=== PATIENT | female | born 1950 | race Caucasian/White ===

== ENCOUNTER → 2016-05-29 | Outpatient (CLI) | payer BC ==
[2016-05-29 10:57] LABS: Partial Thromboplastin Time 23.6 sec (22.0-30.0)
[2016-05-30 07:25] LABS: Cardiolipin Ab IgG <9.0 GPL (<15); Cardiolipin Ab IgM <9.0 MPL (<12.5)
[2016-05-30 10:40] LABS: Protein C (Activity) 154 % (70 - 130)
[2016-06-01 11:25] LABS: Free Protein S Antigen 122 % (50 - 147)
== END | disposition home or self-care (01) ==
LOC: LABWHC1 09:04
PROVIDERS: ATTEND Internal Medicine Critical Care Medicine
DX: D68.69 Other thrombophilia (principal)
CPT/HCPCS: 36415; 81240; 81241; 83090; 85301; 85303; 85306; 85610; 85613; 85730; 86147

== ENCOUNTER → 2016-10-17 | Outpatient (CLI) | payer BC ==
--- NOTE | 2016-10-17 17:58 | CT ---
EXAMINATION TYPE: CT lumbar spine wo con DATE OF EXAM: 10/17/2016 5:39 PM COMPARISON: NONE HISTORY: Bilat flank pain with numbness to upper legs. No known injury CT DLP: 1863.8 mGycm Automated exposure control for dose reduction was used. Unenhanced CT of the lumbar spine was performed. Bone and soft tissue window settings are submitted as well as coronal and sagittal reconstructions. The vertebra have fairly normal alignment. There is narrowing at L5-S1 disc space with vacuum disc an d spur formation. There is no paraspinal mass. There is no compression fracture. I see no spinal sten osis. There is mild endplate spur formation at L5-S1 posteriorly. There is developmentally adequate s ashtyn canal. There is hypertrophic facet arthropathy at L4-5 and L5-S1. The neural foramina appear we ll maintained. Sacroiliac joints are intact. IMPRESSION: There is spondylosis at L5-S1. No fracture. No spinal stenosis. Small posterior disc bulging at L4-5 L5-S1 without encroachment on the neural elements.
== END | disposition home or self-care (01) ==
LOC: RADCTMAIN 17:17
PROVIDERS: ATTEND Psychiatry & Neurology Neurology
DX: M51.27 Other intervertebral disc displacement, lumbosacral region (principal); M47.817 Spondylosis without myelopathy or radiculopathy, lumbosacral region; Z88.5 Allergy status to narcotic agent; Z91.011 Allergy to milk products
CPT/HCPCS: 72131

== ENCOUNTER 2017-03-10 17:20 | Emergency (ER) | payer BC ==
[2017-03-10] MEDS ORDERED: SODIUM CHLORIDE 0.9% 1,000 ML IV STA (17:38)
--- NOTE | 2017-03-10 17:53 | ED ---
Chest Pain HPI - General Chief Complaint: Chest Pain Stated Complaint: SOB Time Seen by Provider: 03/10/17 17:20 Source: patient, EMS, RN notes reviewed Mode of arrival: EMS Limitations: no limitations - History of Present Illness Initial Comments: This is a 66-year-old female history of pulmonary embolus and was on a blood thinner at this time who states she had the onset around 3:30 PM today of right- sided posterior shoulder and chest pain. She states it was dull and achy in nature was 5 out of 10 now 4/10 in severity felt similar to her previous pulmonary and was in. That was 2 years ago. No fevers chills sweats or is reproducibility with movement of her right arm and shoulder and when she pushed on the right side of her chest. No cough or phlegm production fevers chills sweats or other symptoms. She does admit that she was somewhat anxious. MD Complaint: chest pain - Related Data Home Medications Medication Instructions Recorded Confirmed SUMAtriptan SUCCINATE [Imitrex] 100 mg PO BID PRN 05/05/15 03/10/17 Rivaroxaban [Xarelto] 20 mg PO AC-SUPPER 09/23/15 03/10/17 Calcium/Magnesium/Vit D3/K2 1 tab PO AC-SUPPER 03/10/17 03/10/17 Ciclopirox [Penlac] 1 applic TOPICAL HS 03/10/17 03/10/17 Losartan/Hydrochlorothiazide 1 tab PO AC-SUPPER 03/10/17 03/10/17 [Losartan-Hctz 100-25 mg Tab] Meloxicam [Mobic] 15 mg PO DAILY PRN 03/10/17 03/10/17 Rizatriptan Benzoate [Maxalt] 10 mg PO BID PRN 03/10/17 03/10/17 rOPINIRole HCL [Requip] 1 mg PO BID 03/10/17 03/10/17 Previous Rx's Medication Instructions Recorded Hydrocodone/Acetaminophen [[place] 1 each PO Q6HR PRN #12 tab 03/10/17 5-325] predniSONE 20 mg PO BID #10 tab 03/10/17 Allergies Allergy/AdvReac Type Severity Reaction Status Date / Time Milk Containing Products Allergy Abdominal Verified 03/10/17 17:55 [Dairy] Pain wheat Allergy Abdominal Verified 01/07/18 17:55 Pain Review of Systems ROS Statement: Those systems with pertinent positive or pertinent negative responses have been documented in the HPI. ROS Other: All systems not noted in ROS Statement are negative. EKG Findings - EKG Results: EKG: interpreted by JEREMY, sinus rhythm (Sinus rhythm of 86. Interval 202 QRS of 92 QT since QTC of 360/440 evidence a left axis deviation and old inferior changes. Compared with an EKG dated 05/05/15 the configuration appears consistent.) Past Medical History Past Medical History: Cancer, Chest Pain / Angina, Deep Vein Thrombosis (DVT), GERD/Reflux, Pulmonary Embolus (PE) Additional Past Medical History / Comment(s): migranes, ovarian stage three, History of Any Multi-Drug Resistant Organisms: None Reported Past Surgical History: Appendectomy, Breast Surgery, Hysterectomy, Tonsillectomy Additional Past Surgical History / Comment(s): right eye surgery Past Anesthesia/Blood Transfusion Reactions: Postoperative Nausea & Vomiting ( PONV) Past Psychological History: Anxiety Smoking Status: Never smoker Past Alcohol Use History: None Reported Past Drug Use History: Marijuana - Past Family History Father History Unknown: Yes Family Medical History: Cancer Additional Family Medical History / Comment(s): migraines, cancer kidney, TB, General Exam - General Exam Comments Initial Comments: This is a well-developed well-nourished awake alert oriented 3 female Limitations: no limitations General appearance: alert, in no apparent distress Head exam: Present: atraumatic, normocephalic, normal inspection Eye exam: Present: normal appearance, PERRL, EOMI. Absent: scleral icterus, conjunctival injection, periorbital swelling ENT exam: Present: normal exam, mucous membranes moist Neck exam: Present: normal inspection. Absent: tenderness, meningismus, lymphadenopathy Respiratory exam: Present: decreased breath sounds, other (Tennis palpation of the right costal chondral and costosternal margin.). Absent: respiratory distress, wheezes, rales, rhonchi, stridor Cardiovascular Exam: Present: regular rate, normal rhythm, normal heart sounds. Absent: systolic murmur, diastolic murmur, rubs, gallop, clicks GI/Abdominal exam: Present: soft, normal bowel sounds. Absent: distended, tenderness, guarding, rebound, rigid Extremities exam: Present: normal inspection, full ROM, normal capillary refill. Absent: tenderness, pedal edema, joint swelling, calf tenderness Back exam: Present: normal inspection Neurological exam: Present: alert, oriented X3, CN II-XII intact Psychiatric exam: Present: normal affect, normal mood Skin exam: Present: warm, dry, intact, normal color. Absent: rash Course Vital Signs 03/10/17 17:27 Temperature 98.3 F Pulse Rate 103 H Respiratory 20 Rate Blood Pressure 130/85 O2 Sat by Pulse 98 Oximetry Chest Pain MDM - MDM I did review the imaging and report no acute findings. Patient's presentation is consistent with chest wall pain/costochondritis she'll be discharged on appropriate medication. Disposition Clinical Impression: Costalchondritis, Chest wall syndrome Disposition: HOME SELF-CARE Condition: Good Instructions: Costochondritis (ED) Prescriptions: Hydrocodone/Acetaminophen [[place] 5-325] 1 each PO Q6HR PRN #12 tab PRN Reason: Pain predniSONE 20 mg PO BID #10 tab Referrals: Leif Salmon DO [Primary Care Provider] - 1-2 days
[2017-03-10 17:55] LABS: Basophils # (A) 0.1 k/uL (0-0.2); Basophils % (A) 1 %; Eosinophils # (A) 0.2 k/uL (0-0.7); Eosinophils % (A) 2 %; HCT 44.2 % (34.0-46.0); HGB 14.6 gm/dL (11.4-16.0); Lymphocytes % (A) 23 %; MCH 30.4 pg (25.0-35.0); MCHC 33.1 g/dL (31.0-37.0); MCV 91.9 fL (80.0-100.0); Mean Platelet Volume 7.8; Monocytes # (A) 0.6 k/uL (0-1.0); Monocytes % (A) 7 %; Neutrophils # (A) 5.8 k/uL (1.3-7.7); Neutrophils % (A) 66 %; Platelet Count 261 k/uL (150-450); RBC 4.81 m/uL (3.80-5.40); RDW 13.8 % (11.5-15.5); WBC 8.8 k/uL (3.8-10.6)
[2017-03-10 18:04] LABS: ALT 40 U/L (9-52); AST 20 U/L (14-36); Albumin 4.1 g/dL (3.5-5.0); Alkaline Phosphatase 71 U/L (38-126); Anion Gap 12 mmol/L; Blood Urea Nitrogen 20 mg/dL (7-17); Calcium 9.7 mg/dL (8.4-10.2); Carbon Dioxide 27 mmol/L (22-30); Chloride 103 mmol/L (98-107); Glucose 98 mg/dL (74-99); Magnesium 1.8 mg/dL (1.6-2.3); Potassium 3.5 mmol/L (3.5-5.1); Sodium 142 mmol/L (137-145); Total Bilirubin 0.4 mg/dL (0.2-1.3); Total Protein 6.7 g/dL (6.3-8.2)
[2017-03-10 18:06] LABS: Creatine Kinase 113 U/L (30-135)
[2017-03-10 18:16] LABS: D-Dimer 0.35 mg/L FEU (<0.60); Partial Thromboplastin Time 24.9 sec (22.0-30.0); Prothrombin Time 10.2 sec (9.0-12.0)
[2017-03-10 18:20] LABS: Creatine Kinase MB 0.9 ng/mL (0.0-2.4); Troponin I <0.012 ng/mL (0.000-0.034)
--- NOTE | 2017-03-10 18:24 | XR ---
EXAMINATION TYPE: XR chest 2V DATE OF EXAM: 03/10/2017 COMPARISON: Chest x-ray and CTA chest May 05, 2015. HISTORY: Right-sided chest pain. TECHNIQUE: Frontal and lateral views of the chest are obtained. FINDINGS: There is chronic parenchymal change with left basilar opacity redemonstrated. There is ch ronic curvilinear opacity right lateral lung. This correlates on CT with prominent right lateral ches t wall fat deep to intercostal space. The cardiac silhouette size is is stable and upper limits of no rmal. The osseous structures remain demineralized. Posterior vertical wires are presumed external. IMPRESSION: Chronic changes with left basilar opacity redemonstrated felt to reflect atelectasis and /or scarring. No new infiltrate is seen.
[2017-03-10] MEDS ORDERED: ONDANSETRON 4 MG/2 ML VIAL IVP STA (18:31)
[2017-03-10] MEDS ORDERED: HYDROmorphone 1 MG/ML 1 ML SYRINGE IVP STA (18:32)
[2017-03-10 19:28] VITALS: BP 98/55; PULSE 77; RESP 16; TEMP 98.7
== END 2017-03-10 19:28 | disposition home or self-care (01) ==
LOC: EC 17:20
DX: M94.0 Chondrocostal junction syndrome [Tietze] (principal); Z86.718 Personal history of other venous thrombosis and embolism; Z86.711 Personal history of pulmonary embolism; Z79.01 Long term (current) use of anticoagulants; Z91.018 Allergy to other foods; Z91.011 Allergy to milk products; Z79.899 Other long term (current) drug therapy
CPT/HCPCS: 99285; 96374; 96375; 96361 ×2; 36415; 93005; 85379; 80053; 82550; 82553; 83735; 84484; 85025; 85610; 85730; 71046; J2405; J1170

== ENCOUNTER → 2017-03-14 | Outpatient (CLI) | payer BC ==
--- NOTE | 2017-03-14 09:58 | XR ---
EXAMINATION TYPE: XR elbow complete RT DATE OF EXAM: 03/14/2017 CLINICAL HISTORY: Injury with pain. TECHNIQUE: Frontal, lateral and oblique images of the right elbow are obtained. COMPARISON: None FINDINGS: There is no acute fracture/dislocation evident in the right elbow. No abnormal fat pad si gns are seen. There is spurring at olecranon tip at distal triceps tendon attachment. The overlying soft tissue appears unremarkable. IMPRESSION: There is no acute fracture or dislocation in the right elbow.
== END | disposition home or self-care (01) ==
LOC: RADXRMAIN 09:22
PROVIDERS: ATTEND Family Medicine
DX: M25.521 Pain in right elbow (principal)

== ENCOUNTER → 2017-11-06 | Outpatient (CLI) | payer BC ==
--- NOTE | 2017-11-07 09:45 | MM ---
Reason for exam: additional evaluation requested from prior study. Last mammogram was performed 1 year and 10 months ago. History: Patient is postmenopausal. Family history of breast cancer in sister and breast cancer in aunt. Excisional biopsy of the left breast, 1998. Physical Findings: Nurse did not find any significant physical abnormalities on exam. MG 3D Diag Mammo W/Cad OLIVERIO Bilateral CC and MLO view(s) were taken. Prior study comparison: January 17, 2016, bilateral MG work up mamm w CAD BILAT. January 13, 2016, bilateral MG 3d screening mammo w/cad. There are scattered fibroglandular densities. There is chronic nodularity bilaterally. Nodules initially questioned in the left breast in 2016 remain unchanged. No significant new findings when compared with previous films. These results were verbally communicated with the patient and result sheet given to the patient on 11/06/17. ASSESSMENT: Incomplete: need additional imaging evaluation, BI-RAD 0 RECOMMENDATION: Ultrasound of both breasts.
--- NOTE | 2017-11-07 09:48 | USB ---
Reason for exam: additional evaluation requested from abnormal screening. History: Patient is postmenopausal. Family history of breast cancer in sister and breast cancer in aunt. Excisional biopsy of the left breast, 1998. US Breast BILAT Right complete breast ultrasound includes all four quadrants, the retroareolar region and axilla. Finding demonstrates a 0.4 x 0.2 x 0.3cm lesion too small to characterize at 3 o'clock, a 0.4 x 0.3 x 0.3cm cystic lesion at 7 o'clock and a 0.3 x 0.3 x 0.3cm cystic lesion at 8 o'clock. Left complete breast ultrasound includes all four quadrants, the retroareolar region and axilla. Finding demonstrates a 0.7 x 0.4 x 0.4cm cystic cluster at 2 o'clock, a 0.8 x 0.5 x 0.7cm cystic lesion at 3 o'clock, a 0.4 x 0.3 x 0.3cm cystic lesion at 11 o'clock and a 0.6 x 0.4 x 0.4cm mixed lesion at 9 o'clock. These results were verbally communicated with the patient and result sheet given to the patient on 11/06/17. ASSESSMENT: Benign, BI-RAD 2 RECOMMENDATION: Follow-up diagnostic mammogram of both breasts in 1 year.
== END | disposition home or self-care (01) ==
LOC: RADMAMWWP 14:08
PROVIDERS: ATTEND Family Medicine
DX: R92.8 Other abnormal and inconclusive findings on diagnostic imaging of breast (principal); N64.9 Disorder of breast, unspecified
CPT/HCPCS: 77062; 77066

== ENCOUNTER 2018-03-14 10:20 | Emergency (ER) | payer BC ==
[2018-03-14] MEDS ORDERED: LIDOCAINE 1%-EPI 1:100,000 20 ML VIAL SQ STA (10:33)
[2018-03-14 10:42] VITALS: BP 121/80; PULSE 86; RESP 20; TEMP 97.8
--- NOTE | 2018-03-14 11:08 | ED ---
General Adult HPI - General Chief complaint: Wound/Laceration Stated complaint: LEFT HAND LACERATION Time Seen by Provider: 03/14/18 10:30 Source: patient, RN notes reviewed Mode of arrival: ambulatory - History of Present Illness Initial comments: Patient is 67-year-old female presented to the emergency room today with a chief complaint of a laceration to the left hand. She does admit that she was using a knife to cut cheese when it slipped causing laceration to the left ER eminence. Patient does admit that her tetanus is up-to-date. She does admit that she has on a blood thinner. She denies any other complaints or symptoms. Patient denies any recent fever, chills, shortness of breath, chest pain, back pain, abdominal pain, nausea or vomiting, numbness or tingling, headaches or visual changes, or any other complaints. - Related Data Home Medications Medication Instructions Recorded Confirmed SUMAtriptan SUCCINATE [Imitrex] 100 mg PO BID PRN 05/05/15 03/10/17 Rivaroxaban [Xarelto] 20 mg PO AC-SUPPER 09/23/15 03/10/17 Calcium/Magnesium/Vit D3/K2 1 tab PO AC-SUPPER 03/10/17 03/10/17 Ciclopirox [Penlac] 1 applic TOPICAL HS 03/10/17 03/10/17 Losartan/Hydrochlorothiazide 1 tab PO AC-SUPPER 03/10/17 03/10/17 [Losartan-Hctz 100-25 mg Tab] Meloxicam [Mobic] 15 mg PO DAILY PRN 03/10/17 03/10/17 Rizatriptan Benzoate [Maxalt] 10 mg PO BID PRN 03/10/17 03/10/17 rOPINIRole HCL [Requip] 1 mg PO BID 03/10/17 03/10/17 Previous Rx's Medication Instructions Recorded Hydrocodone/Acetaminophen [[place] 1 each PO Q6HR PRN #12 tab 03/10/17 5-325] predniSONE 20 mg PO BID #10 tab 03/10/17 Allergies Allergy/AdvReac Type Severity Reaction Status Date / Time Milk Containing Products Allergy Abdominal Verified 03/14/18 10:29 [Dairy] Pain wheat Allergy Abdominal Verified 03/14/18 10:29 Pain Review of Systems ROS Statement: Those systems with pertinent positive or pertinent negative responses have been documented in the HPI. ROS Other: All systems not noted in ROS Statement are negative. Past Medical History Past Medical History: Cancer, Chest Pain / Angina, Deep Vein Thrombosis (DVT), GERD/Reflux, Pulmonary Embolus (PE) Additional Past Medical History / Comment(s): migranes, ovarian stage three, History of Any Multi-Drug Resistant Organisms: None Reported Past Surgical History: Appendectomy, Breast Surgery, Hysterectomy, Tonsillectomy Additional Past Surgical History / Comment(s): right eye surgery Past Anesthesia/Blood Transfusion Reactions: Postoperative Nausea & Vomiting ( PONV) Past Psychological History: Anxiety Smoking Status: Never smoker Past Alcohol Use History: None Reported Past Drug Use History: Marijuana - Past Family History Father History Unknown: Yes Family Medical History: Cancer Additional Family Medical History / Comment(s): migraines, cancer kidney, TB, General Exam - General Exam Comments Initial Comments: General: The patient is awake and alert, in no distress, and does not appear acutely ill. Musculoskeletal: Full range of motion. Sensation intact. Radial pulse 2+. Strength 5/5. Neurological: A&O x 3. CN II-XII intact, There are no obvious motor or sensory deficits. Coordination appears grossly intact. Speech is normal. Skin: no rashes or lesions are noted. 1.5 cm linear laceration of the thenar eminence of the left hand. Psychiatric: Normal mood and affect. Course Vital Signs 03/14/18 10:27 Temperature 97.8 F Pulse Rate 86 Respiratory 20 Rate Blood Pressure 121/80 O2 Sat by Pulse 99 Oximetry Procedures - Procedures Initial comment: Patient does have a 1.5 cm linear laceration to the thenar eminence of the left hand. Mild venous oozing. The skin was anesthetized with 1% lidocaine with epi. The laceration was then cleansed with Betadine and irrigated with normal saline. The wound was inspected, and there was no evidence of injury to deep structures. No foreign body was noted in the wound. A total of 4 skin sutures were placed utilizing 4-0 nylon. Disposition Clinical Impression: Laceration Disposition: HOME SELF-CARE Condition: Good Instructions: Laceration (ED) Additional Instructions: Please return to the emergency room in 8-10 days to have sutures removed. Please watch for any signs of infection which may include increased pain, swelling, redness, fever or chills. Please return to emergency room for any signs of infection do occur. Please use clean soap and water over the area to prevent scabbing over your stitches. Please leave wound covered for the first 24-48 hours and then leave wound open to air. Please return to the emergency room for any other concerns. Is patient prescribed a controlled substance at d/c from ED?: No Referrals: Leif Salmon DO [Primary Care Provider] - 1-2 days Time of Disposition: 11:18
== END 2018-03-14 11:25 | disposition home or self-care (01) ==
LOC: EC 10:20
DX: S61.412A Laceration without foreign body of left hand, initial encounter (principal); Z79.1 Long term (current) use of non-steroidal anti-inflammatories (NSAID); Z79.01 Long term (current) use of anticoagulants; Z79.899 Other long term (current) drug therapy; Z91.011 Allergy to milk products; Z91.018 Allergy to other foods; Z86.711 Personal history of pulmonary embolism; Z86.718 Personal history of other venous thrombosis and embolism; W26.0XXA Contact with knife, initial encounter; Y93.G3 Activity, cooking and baking
CPT/HCPCS: 12001; 99282

== ENCOUNTER → 2019-02-12 | Outpatient (CLI) | payer MEDICARE, BC ==
--- NOTE | 2019-02-12 15:04 | XR ---
EXAMINATION TYPE: XR shoulder complete RT DATE OF EXAM: 02/12/2019 CLINICAL HISTORY: pain TECHNIQUE: Three views of the right shoulder are obtained. COMPARISON: None FINDINGS: There is no acute fracture/dislocation evident. The acromioclavicular and glenohumeral devan int spaces appear within normal limits. The visualized ribs are intact and unremarkable. IMPRESSION: 1. There is no acute fracture or dislocation. ICD 10 NO FRACTURE, INITIAL EVALUATION
== END | disposition home or self-care (01) ==
LOC: RADXRMAIN 14:46
PROVIDERS: ATTEND Family Medicine
DX: M25.511 Pain in right shoulder (principal)

== ENCOUNTER 2019-09-20 02:38 | Emergency (ER) | payer MEDICARE, BC ==
[2019-09-20 02:43] VITALS: RESP 20; TEMP 99
[2019-09-20] MEDS ORDERED: FAMOTIDINE 20 MG/2 ML VIAL IV STA (02:53)
[2019-09-20] MEDS ORDERED: diphenhydrAMINE 50 MG/ML 1 ML VIAL IVP STA (02:53)
[2019-09-20] MEDS ORDERED: TRANEXAMIC ACID 1,000 MG in SODIUM CHLORIDE 0.9% 100 ML IVPB ONE (02:53)
[2019-09-20] MEDS ORDERED: DEXAMETHASONE SOD PHOSPHATE 10 MG/ML 1 ML VIAL IV STA (02:53)
--- NOTE | 2019-09-20 02:57 | ED ---
General Adult HPI - General Chief complaint: ENT Stated complaint: Sore Throat,Blisters Time Seen by Provider: 09/20/19 02:42 Source: patient, family Mode of arrival: ambulatory Limitations: no limitations - History of Present Illness Initial comments: Dictation was produced using [employer] dictation software. please excuse any grammatical, word or spelling errors. This patient was cared for during a federal and state declared state of emergency secondary to Covid 19 Chief Complaint: 68-year-old female presents with acute onset throat swelling, lip swelling and rash. History of Present Illness: Patient 68-year-old female she went to bed last night in her usual state of health. Patient woke up approximately 1 hour prior to arrival with diffuse urticarial body rash, upper lip swelling and mild throat swelling. Patient states that since waken up her symptoms have been improving. Her rashes basically nonexistent currently. Not taking the lisinopril. Patient does not have a history of angioedema. She denies any chest pain or shortness of breath. No abdominal pain, nausea or vomiting. at bedside reports that her voice did seem a little different at home however her voice returned back to normal. The ROS documented in this emergency department record has been reviewed and confirmed by me. Those systems with pertinent positive or negative responses have been documented in the HPI. All other systems are other negative and/or noncontributory. PHYSICAL EXAM: General Impression: Alert and oriented x3, not in acute distress, no stridor, tolerate secretions, no voice hoarseness, uvula pointing to the left with mild swelling to the right oropharynx HEENT: Normocephalic atraumatic, extra-ocular movements intact, pupils equal and reactive to light bilaterally, mucous membranes moist, mild swelling to the upper lip, mild swelling to the right tonsil without any erythema Cardiovascular: Heart regular rate and rhythm Chest: Able to complete full sentences, no retractions, no tachypnea, lungs clear to auscultation bilaterally Abdomen: abdomen soft, non-tender, non-distended, no organomegaly Musculoskeletal: Pulses present and equal in all extremities, no peripheral edema Motor: no focal deficits noted Neurological: CN II-XII grossly intact, no focal motor or sensory deficits noted Skin: Intact with no visualized rashes Psych: Normal affect and mood ED course: 68-year-old female click or presentation concerning for acute ALLERGIC reaction. Vital signs upon arrival are within acceptable limits. Patient's medication reviewed. Patient is not taking lisinopril or any medications that could possibly cause angioedema. Patient's well-appearing at this time. She does not show any signs of severe ALLERGIC reaction or anaphylaxis. Patient seems to have a component of angioedema with facial swelling and ALLERGIC reaction. Patient treated with steroids, antihistamines and tranexamic acid.CT soft tissue of the neck shows some prevertebral soft tissue increased density at the level of C2-C3 which is narrowing the posterior hypopharyngeal airway and posterior nasopharyngeal airway. Differential according to radiology is inflammatory versus neoplastic. This abnormal areas measuring approximately 5.3 x 1.4 cm sagittal images. Chest x-ray is nonacute. Patient reevaluated bedside [place] stable medical condition. Patient still endorses that she is feeling much better than when initially started. Patient not showing any signs of drooling or respiratory distress. There is no evidence of dysphonia. Case is discussed with Dr. Lind who recommends that patient be transferred to higher level of care given the size and location of the airway mass. Disposition options were discussed with patient. Patient is agreeable for transfer to [facility]. Discussed patient case with Dr. Apodaca who is willing to accept patient for ear ER transfer at [facility]. Patient agre eable to disposition. At time of transfer patient is tolerating secretions not showing signs of respiratory distress and is well-appearing. At this point there is no indication for aggressive airway intervention at this time. - Related Data Home Medications Medication Instructions Recorded Confirmed SUMAtriptan SUCCINATE [Imitrex] 100 mg PO BID PRN 05/05/15 03/10/17 Rivaroxaban [Xarelto] 20 mg PO AC-SUPPER 09/23/15 03/10/17 Calcium/Magnesium/Vit D3/K2 1 tab PO AC-SUPPER 03/10/17 03/10/17 Ciclopirox [Penlac] 1 applic TOPICAL HS 03/10/17 03/10/17 Losartan/Hydrochlorothiazide 1 tab PO AC-SUPPER 03/10/17 03/10/17 [Losartan-Hctz 100-25 mg Tab] Meloxicam [Mobic] 15 mg PO DAILY PRN 03/10/17 03/10/17 Rizatriptan Benzoate [Maxalt] 10 mg PO BID PRN 03/10/17 03/10/17 rOPINIRole HCL [Requip] 1 mg PO BID 03/10/17 03/10/17 Previous Rx's Medication Instructions Recorded Hydrocodone/Acetaminophen [[place] 1 each PO Q6HR PRN #12 tab 03/10/17 5-325] predniSONE [Deltasone] 20 mg PO BID #10 tab 03/10/17 Allergies Allergy/AdvReac Type Severity Reaction Status Date / Time Milk Containing Products Allergy Abdominal Verified 09/20/19 02:42 [Dairy] Pain wheat Allergy Abdominal Verified 09/20/19 02:42 Pain Review of Systems ROS Statement: Those systems with pertinent positive or pertinent negative responses have been documented in the HPI. ROS Other: All systems not noted in ROS Statement are negative. Past Medical History Past Medical History: Cancer, Chest Pain / Angina, Deep Vein Thrombosis (DVT), GERD/Reflux, Pulmonary Embolus (PE) Additional Past Medical History / Comment(s): migranes, ovarian stage three, History of Any Multi-Drug Resistant Organisms: None Reported Past Surgical History: Appendectomy, Breast Surgery, Hysterectomy, Tonsillectomy Additional Past Surgical History / Comment(s): right eye surgery Past Anesthesia/Blood Transfusion Reactions: Postoperative Nausea & Vomiting (PONV) Past Psychological History: Anxiety Smoking Status: Never smoker Past Alcohol Use History: None Reported Past Drug Use History: Marijuana - Past Family History Father History Unknown: Yes Family Medical History: Cancer Additional Family Medical History / Comment(s): migraines, cancer kidney, TB, General Exam Limitations: no limitations Course Vital Signs 09/20/19 02:39 Temperature 99 F Pulse Rate 104 H Respiratory 20 Rate Blood Pressure 122/78 O2 Sat by Pulse 94 L Oximetry Medical Decision Making - Lab Data Result diagrams: 09/20/19 03:51 Lab Results 09/20/19 Range/Units 03:51 Sodium 137 (137-145) mmol/L Potassium 4.0 (3.5-5.1) mmol/L Chloride 103 (98-107) mmol/L Carbon Dioxide 26 (22-30) mmol/L Anion Gap 8 mmol/L BUN 22 H (7-17) mg/dL Creatinine 1.18 H (0.52-1.04) mg/dL Est GFR (CKD-EPI)AfAm 56 (>60 ml/min/1.73 sqM) Est GFR (CKD-EPI)NonAf 48 (>60 ml/min/1.73 sqM) Glucose 152 H (74-99) mg/dL Calcium 9.5 (8.4-10.2) mg/dL Disposition Clinical Impression: Hypopharyngeal mass Disposition: OTHER INSTITUTION NOT DEFINED Condition: Fair Referrals: Leif Salmon DO [Primary Care Provider] - 1-2 days Time of Disposition: 05:17 - Out of Hospital Transfer - Req. Specs Out of Hospital Transfer - Requested Specifics: Other Emergency Center ([facility])
--- NOTE | 2019-09-20 03:04 | XR ---
EXAMINATION TYPE: XR chest 1V portable DATE OF EXAM: 09/20/2019 COMPARISON: 03/10/2017 HISTORY: Short of breath TECHNIQUE: FINDINGS: There is some mild linear density at the left lung base. There is no heart failure. There i s no pulmonary consolidation. Heart size is normal. Thoracic aorta is atheromatous. IMPRESSION: Mild scarring or subsegmental atelectasis left lung base unchanged. No heart failure seen .
[2019-09-20 04:13] LABS: Calcium 9.5 mg/dL (8.4-10.2)
--- NOTE | 2019-09-20 04:46 | CT ---
EXAMINATION TYPE: CT soft tissue neck w con DATE OF EXAM: 09/20/2019 COMPARISON: None HISTORY: Blisters in throat CT DLP: 448.6 mGycm Automated exposure control for dose reduction was used. CONTRAST: Performed with IV Contrast, patient injected with 80 mL of Isovue 300. Images were obtained from the level of the aortic arch to the top of the frontal sinuses with IV cont rast. FINDINGS: There is no mediastinal adenopathy. There is normal branching pattern of the great vessels on the aor tic arch. Thyroid gland is symmetric. There is normal contrast opacification of the carotid arteries and jugular veins. There is bilateral contrast opacification of the vertebral arteries. Left vertebra l artery is larger than the right. The epiglottis appears normal. There is increased density in the p revertebral soft tissues at the C2 level which is narrowing the posterior narrowing of oropharyngeal airway. Is not clear if this is due to a soft tissue mass or mucosal thickening. The tongue appears i ntact. There is metal artifact from the dental work. The cervical vertebra show some straightening. T here is no evidence of focal bone destruction. The skull base is intact. There is narrowing of C6-7 d isc space with spur formation. There is small mucus retention cyst in the posterior left maxillary si nus. The other paranasal sinuses are fairly well aerated. I see no focal bone destruction. The tonsil s appear normal. IMPRESSION: There is increased density in the prevertebral soft tissues at C2-C3 level which is narrowing the pos terior hypopharyngeal airway and posterior nasopharyngeal airway. The appearance is nonspecific and I would consider both inflammatory and neoplastic process. Abnormal area measures 5.3 x 1.4 cm on the sagittal images. No evidence of an abscess. Exam limited slightly by the metal artifact.
[2019-09-20] MEDS ORDERED: NALOXONE 0.4 MG/ML 1 ML VIAL IV PRN (04:59)
[2019-09-20] MEDS ORDERED: SODIUM CHLORIDE 0.9% 1,000 ML IV SCH (05:00)
[2019-09-20 06:22] VITALS: BP 131/77; PULSE 82
== END 2019-09-20 06:20 | disposition other institution (70) ==
LOC: EC 02:38
DX: J39.2 Other diseases of pharynx (principal); J02.9 Acute pharyngitis, unspecified; R22.0 Localized swelling, mass and lump, head; R21 Rash and other nonspecific skin eruption; Z20.828 Contact with and (suspected) exposure to other viral communicable diseases; Z86.718 Personal history of other venous thrombosis and embolism; Z86.711 Personal history of pulmonary embolism; Z85.9 Personal history of malignant neoplasm, unspecified; Z79.01 Long term (current) use of anticoagulants; Z79.899 Other long term (current) drug therapy; Z91.011 Allergy to milk products; Z91.018 Allergy to other foods; Z53.8 Procedure and treatment not carried out for other reasons
CPT/HCPCS: 36415; 80048; 71045; 70491; 99284; 96365; 96375 ×3; U0003; J1200; J1100; Q9967

== ENCOUNTER → 2019-09-30 | Outpatient (CLI) | payer MEDICARE, BC ==
[2019-10-01 13:58] LABS: Pork IgE Class CLASS 0
[2019-10-01 13:59] LABS: Apple IgE Class CLASS 0; Beef IgE <0.10 kU/L (<0.10); Beef IgE Class CLASS 0; Chicken IgE Class CLASS 0; Yeast Bakers/Brew IgE <0.10 kU/L (<0.10); Yeast Bakers/Brew IgE Class CLASS 0
[2019-10-01 14:00] LABS: Alt. alternata IgE Class CLASS 0; Alternaria alternata IgE <0.10 kU/L (<0.10); Asperg. fumagatus IgE <0.10 kU/L (<0.10); Asperg. fumagatus IgE Class CLASS 0; Aureo. pullulans IgE <0.10 kU/L (<0.10); Aureo. pullulans IgE Class CLASS 0; Avocado Class CLASS 0; Banana IgE Class CLASS 0; Birch(Com.Silvr) IgE <0.10 kU/L (<0.10); Birch(Com.Silvr) IgE Class CLASS 0; Candida albicans IgE Class CLASS 0; Cat Epith & Dander IgE <0.10 kU/L (<0.10); Cat Epith & Dander IgE Class CLASS 0; Chocolate IgE Class CLASS 0; Clad herbarum IgE <0.10 kU/L (<0.10); Clad herbarum IgE Class CLASS 0; Cockroach IgE <0.10 kU/L (<0.10); Coffee IgE <0.10 kU/L (<0.10); Coffee IgE Class CLASS 0; Com. Pigweed IgE <0.10 kU/L (<0.10); Com. Pigweed IgE Class CLASS 0; Cottonwood IgE <0.10 kU/L (<0.10); Cow's Milk IgE Class CLASS 0; Dermato. Pteronyssinus Class CLASS 0; Dermato. Pteronyssinus IgE <0.10 kU/L (<0.10); Dermato. farinae IgE <0.10 kU/L (<0.10); Dermato. farinae IgE Class CLASS 0; Dog Dander IgE <0.10 kU/L (<0.10); Egg White IgE <0.10 kU/L (<0.10); English Plantain IgE Class CLASS 0; Epicoccum purpurascens Class CLASS 0; Epicoccum purpurascens IgE <0.10 kU/L (<0.10); Hazelnut IgE <0.10 kU/L (<0.10); Hazelnut IgE Class CLASS 0; Johnson Grass IgE Class CLASS 0; Kiwi IgE <0.10 kU/L (<0.10); Kiwi IgE Class CLASS 0; Lamb's Quarter IgE <0.10 kU/L (<0.10); Lamb's Quarter IgE Class CLASS 0; Latex IgE Class CLASS 0; Maple (Box Elder) IgE <0.10 kU/L (<0.10); Maple (Box Elder) IgE Class CLASS 0; Mucor racemosus IgE <0.10 kU/L (<0.10); Mucor racemosus IgE Class CLASS 0; Oak IgE <0.10 kU/L (<0.10); Peanut IgE <0.10 kU/L (<0.10); Potato IgE <0.10 kU/L (<0.10); Potato IgE Class CLASS 0; Rhizopus nigricans IgE <0.10 kU/L (<0.10); Rhizopus nigricans IgE Class CLASS 0; S.rostrata/Helminth Class CLASS 0; S.rostrata/Helminth IgE <0.10 kU/L (<0.10); Soybean IgE <0.10 kU/L (<0.10); Sycamore(Mpl.Lf) IgE <0.10 kU/L (<0.10); Sycamore(Mpl.Lf) IgE Class CLASS 0; Timothy Grass IgE <0.10 kU/L (<0.10); Timothy Grass IgE Class CLASS 0; Walnut Tree IgE <0.10 kU/L (<0.10); Walnut Tree IgE Class CLASS 0; White Ash IgE Class CLASS 0
[2019-10-01 14:01] LABS: Tea IgE <0.10 kU/L (<0.10); Tea IgE Class CLASS 0
== END | disposition home or self-care (01) ==
LOC: LABWHC1 10:58
PROVIDERS: ATTEND Otolaryngology
DX: J30.89 Other allergic rhinitis (principal)
CPT/HCPCS: 36415; 86003

== ENCOUNTER → 2022-03-21 | Outpatient (CLI) | payer MEDICARE ==
--- NOTE | 2022-03-22 17:12 | MM ---
Reason for Exam: Screening (asymptomatic). Last mammogram was performed 4 year(s) and 4 month(s) ago. Patient History: Menarche at age 14. First Full-Term at age 21. Left ovary removed at age 44. Right ovary removed at age 44. Hysterectomy at age 44. Postmenopausal. 1998, Excisional Biopsy on the Left side. Maternal aunt had breast cancer. Sister had breast cancer at or over age 50. Sister had breast cancer at or over age 50. Risk Values: Mae 5 year model risk: 9.5%. NCI Lifetime model risk: 26.5%. Prior Study Comparison: 01/13/2016 Bilateral Screening Mammogram, [facility]. 01/17/2016 Bilateral Diagnostic Mammogram, [facility]. 11/06/2017 Bilateral Diagnostic Mammogram, [facility]. Tissue Density: There are scattered fibroglandular densities. Findings: Analyzed By CAD. Pattern appears symmetrical and stable. No significant interval change is evident. No suspicious groups of microcalcifications, spiculated or lobular masses, architectural distortion or other secondary signs of malignancy are mammographically apparent. Overall Assessment: Benign, BI-RAD 2 Management: Screening Mammogram of both breasts in 1 year. A negative mammogram report should not preclude additional follow up of suspicious palpable abnormalities. Patient should continue monthly self breast exam. A clinical breast exam by your physician is recommended on an annual basis and results should be correlated with mammographic findings. Electronically signed and approved by: Michael Leo D.O. Radiologis
== END | disposition home or self-care (01) ==
LOC: RADMAMWWP 13:28
PROVIDERS: ATTEND Family Medicine
DX: Z12.31 Encounter for screening mammogram for malignant neoplasm of breast (principal); Z78.0 Asymptomatic menopausal state; Z80.3 Family history of malignant neoplasm of breast; Z98.890 Other specified postprocedural states
CPT/HCPCS: 77063; 77067

== ENCOUNTER → 2022-03-31 | Outpatient (CLI) | payer MEDICARE | END | disposition home or self-care (01) | LOC: LABWHC1 09:25 → EDSTATUS 11:55 | PROVIDERS: ATTEND Psychiatry & Neurology Neurology | DX: Z01.812 Encounter for preprocedural laboratory examination (principal); R94.31 Abnormal electrocardiogram [ECG] [EKG]; I21.19 ST elevation (STEMI) myocardial infarction involving other coronary artery of inferior wall | CPT/HCPCS: 36415; 93005 ==

== ENCOUNTER 2023-02-20 07:50 | Day surgery (SDC) | payer MEDICARE ==
[2023-02-18 11:29] VITALS: BMI 32.6
--- NOTE | 2023-02-19 10:06 | P.HPOR ---
History of Present Illness H&P Date: 02/19/23 Subjective: This is a 72 year old female that presents today for initial evaluation regarding a several year history of progressively worsening bilateral hand paresthesias with the right being more symptomatically the left. She has tried night bracing with mild relief of her symptoms and has had 2 carpal tunnel steroid injections with most recent providing one week of relief. These were performed at her neurologist office. She states the numbness typically involves the thumb, index, middle and ring fingers. She denies any injury or inciting event. Physical Examination: LUE: AIN/PIN/Radial/Ulnar/Median motor intact. Radial/Ulnar/Median SILT. 2+/4 Radial/Ulnar pulses palpated. 5/5 APB, 5/5 FDI. Negative Finkelsteins, negative CMC grind, positive Durkan's compression. RUE: AIN/PIN/Radial/Ulnar/Median motor intact. Radial/Ulnar/Median SILT. 2+/4 Radial/Ulnar pulses palpated. 5/5 APB, 5/5 FDI. Negative Finkelsteins, negative CMC grind, positive Durkan's compression. Imaging: X-Rays of the left hand 3V taken in office today demonstrates abnormality. X-Rays of the right hand 3 view taken in the office today demonstrates moderate degenerative changes at the thumb CMC joint. Calcification just distal to the ulnar styloid present. Impression: 1.) B/L Carpal tunnel syndrome Plan: Diagnosis and treatment options were discussed with the patient. She has failed conservative treatment and wishes to proceed with a right endoscopic vs open carpal tunnel release followed by a left endoscopic carpal tunnel release at a staged date. Risks and benefits of surgery including bleeding, infection, damage to surrounding tissue, need for further surgery, possible need to convert to open procedure, residual numbness were discussed and the patient wished to go forward with surgery. The patient was agreeable with this plan. CC: Leif Salmon D.O. -Jaspal Ramírez DO Orthopedic Hand/Upper Extremity Surgeon Past Medical History Past Medical History: Blood Disorder, Cancer, Diabetes Mellitus, Deep Vein Thrombosis (DVT), GERD/Reflux, Myocardial Infarction (MT), Osteoarthritis (OA), Pulmonary Embolus (PE), Vascular Disorder Additional Past Medical History / Comment(s): migranes, ovarian cancer stage three, leiden factor 5., RLS, has neuro stimulator left back., hx fx disc., carpal tunnel syndrome both wrists. Last Myocardial Infarction Date:: 1973 History of Any Multi-Drug Resistant Organisms: None Reported Past Surgical History: Appendectomy, Breast Surgery, Heart Catheterization, Hysterectomy, Tonsillectomy Additional Past Surgical History / Comment(s): right eye surgery , bowel resection, neuro stimulator (Barron) left back. Past Anesthesia/Blood Transfusion Reactions: Motion Sickness, Postoperative Nausea & Vomiting (PONV) Additional Past Anesthesia/Blood Transfusion Reaction / Comment(s): woke up during surgery. Past Psychological History: No Psychological Hx Reported Smoking Status: Never smoker Past Alcohol Use History: None Reported Past Drug Use History: Marijuana Additional Drug Use History / Comment(s): current marijuana use - Past Family History Father History Unknown: Yes Family Medical History: Cancer Additional Family Medical History / Comment(s): migraines, cancer kidney, TB, Brother(s) Family Medical History: Deep Vein Thrombosis (DVT), Pulmonary Embolus Medications and Allergies Home Medications Medication Instructions Recorded Confirmed Type SUMAtriptan succinate [Imitrex] 100 mg PO BID PRN 05/05/15 02/18/23 History Rizatriptan Benzoate [Maxalt] 10 mg PO DIRECTED PRN 03/10/17 02/18/23 History rOPINIRole HCL [Requip] 1 mg PO TID 03/10/17 02/18/23 History Acetaminophen [Tylenol Arthritis] 1,300 mg PO QAM 02/18/23 02/18/23 History Atorvastatin [Lipitor] 20 mg PO DAILY 02/18/23 02/18/23 History Metformin (New Script) 1 dose PO DIRECTED 02/18/23 History Metoprolol Succinate (ER) [Toprol 25 mg PO HS 02/18/23 02/18/23 History Xl] Pregabalin [Lyrica] 100 mg PO TID 02/18/23 02/18/23 History Rivaroxaban [Xarelto] 10 mg PO HS 02/18/23 02/18/23 History hydroCHLOROthiazide [Hydrodiuril] 25 mg PO DAILY 02/18/23 02/18/23 History Allergies Allergy/AdvReac Type Severity Reaction Status Date / Time ANUPAM Inhibitors Allergy Unknown listed on Verified 02/18/23 11:27 Dr Serra clearance paper. Milk Containing Products Allergy Abdominal Verified 02/18/23 10:36 (Dairy) Pain [Dairy] adhesive AdvReac Unknown tape and Verified 02/18/23 11:15 bandaides cause blisters Narcotics AdvReac Severe Nausea & Uncoded 02/18/23 11:15 Vomiting Physical Examination Osteopathic Statement: *. No significant issues noted on an osteopathic structural exam other than those noted in the History and Physical/Consult.
[~2023-02-20 07:50] MED LIST: LACTATED RINGERS 1,000 ML IV SCH; ONDANSETRON 4 MG/2 ML VIAL IVP ONE; Pre Op ABX Message 1 EACH MISC MISCELLANE ONE; fentaNYL (PF) 50 MCG/ML 2 ML AMP IV PRN
[2023-02-20 08:38] LABS: Glucose,Whole Blood 123 mg/dL (70-110)
[2023-02-20 08:55] VITALS: TEMP 97.9
[2023-02-20] MEDS ORDERED: fentaNYL (PF) 50 MCG/ML 2 ML AMP ONE (08:57)
[2023-02-20] MEDS ORDERED: PROPOFOL 10 MG/ML 20 ML VIAL IV ONE (08:57)
[2023-02-20] MEDS ORDERED: MIDAZOLAM 2 MG/2 ML VIAL ONE (08:57)
[2023-02-20] MEDS ORDERED: LIDOCAINE 1% INJ 10MG/ML (20 ML MDV) SQ ONE (09:14)
[2023-02-20] MEDS ORDERED: BUPIVACAINE (PF) 0.5% 30 ML VIAL SQ ONE (09:14)
--- NOTE | 2023-02-20 09:21 | P.OP ---
Date of Procedure: 02/20/23 Preoperative Diagnosis: Right carpal tunnel syndrome Postoperative Diagnosis: Right carpal tunnel syndrome Procedure(s) Performed: Right endoscopic carpal tunnel release Anesthesia: MAC Surgeon: Jaspal Ramírez Estimated Blood Loss (ml): 0 Pathology: none sent Condition: stable Disposition: PACU Description of Procedure: This is a 72 year old female who presents today for a right endoscopic carpal tunnel release after having failed conservative treatment in the past. Risks and benefits of surgery were discussed with the patient including bleeding, damage to surrounding tissue, infection, need to convert to open procedure, need for further surgery as well as risks of anesthesia including pulmonary embolism and even and the patient wished to proceed with surgical intervention. The patients was seen in the pre-operative area by myself. Consent and H&P were completed and updated. The correct extremity was marked in the pre-operative area by myself and all other questions were answered. Operative Narrative: The patient was brought to the operating room by the department of anesthesia. They remained on the portable stretcher and a rolling hand table was brought to the side of the operative extremity. Pre-operative time out was performed indicating the correct patient, procedure and laterality. All in the room agreed. The patient was then drifted off to sleep by the department of anesthesia. MAC anesthesia was utilized and a 50:50 mixture of 1% Lidocaine and 0.5% bupivacaine was injected into the subcutaneous tissues of the palmar skin, 8ccs total. A nonsterile tourniquet was then applied to the operative extremity and the right upper extremity was then prepped and draped in normal sterile fashion. The operative extremity was the exsanguinated with an esmarch bandage and the tourniquet was inflated to 250mmHg. 15 blade scalpel was utilized to make a transverse incision on the palmar skin just ulnar to the palmaris longus tendon at the level of the distal wrist crease. Ragnell retractor was then placed radially and blunt dissection was performed to reveal the distal forearm fascia. This was lifted with fine Kyaw pick ups and Littler tenotomy scissors were then used to open the forearm fascia transversely and a double skin hook was then placed. Hamate finder was placed into the carpal tunnel and then sequential sized dilators were inserted followed by the synovial elevator to separate the flexor tenosynovium from the undersurface of the transverse carpal ligament and a washboard texture was felt. The MicroAire endoscopic carpal tunnel release system gun was the then inserted into the carpal tunnel hugging the deep portion of the transverse carpal ligament in line with the base of the ring finger. Transverse fibers of the ligament were directly visualized. Pressure was applied on the palm to reveal t he distal extent of the transverse carpal ligament. The blade was then deployed and the distal half of the transverse carpal ligament was released. The scope was then brought distal again and remaining transverse fibers were incised with the blade. The proximal half of the transverse carpal ligament was then divided and again the scope was advanced distal and remaining transverse fibers were incised with the blade. The radial and ulnar leaflets were directly visualized and mobile consistent with complete release. Tenotomy scissors were then utilized to release the remaining distal forearm fascia under direct visualization taking care to preserve the palmar cutaneous branch of the median nerve. Skin closure was performed with interrupted 4-0 Monocryl suture followed by adaptic. Sterile dressing was applied consisting 4x4s, Webril, and an margarito bandage. Tourniquet was let down and the hand immediately was well perfused. The patient was then woken by the department of anesthesia and transferred to PACU in stable condition. Jaspal Ramírez D.O. Orthopedic Hand/Upper Extremity Surgeon
[2023-02-20 09:51] VITALS: BP 107/75; PULSE 61; RESP 14
== END 2023-02-20 10:30 | disposition home or self-care (01) ==
LOC: OR 07:50
PROVIDERS: ATTEND Orthopaedic Surgery Hand Surgery
DX: G56.01 Carpal tunnel syndrome, right upper limb (principal); E11.9 Type 2 diabetes mellitus without complications; Z86.718 Personal history of other venous thrombosis and embolism; K21.9 Gastro-esophageal reflux disease without esophagitis; I25.2 Old myocardial infarction; M19.90 Unspecified osteoarthritis, unspecified site; G25.81 Restless legs syndrome; G43.909 Migraine, unspecified, not intractable, without status migrainosus; F12.90 Cannabis use, unspecified, uncomplicated; Z86.711 Personal history of pulmonary embolism; Z85.43 Personal history of malignant neoplasm of ovary; Z90.710 Acquired absence of both cervix and uterus; Z98.890 Other specified postprocedural states; Z79.84 Long term (current) use of oral hypoglycemic drugs; Z79.899 Other long term (current) drug therapy; Z88.5 Allergy status to narcotic agent; Z88.8 Allergy status to other drugs, medicaments and biological substances; Z91.048 Other nonmedicinal substance allergy status
CPT/HCPCS: 29848; J2250; J2405; J2001; J3010; J2704; J0665

== ENCOUNTER → 2023-11-22 | Outpatient (CLI) | payer MEDICARE ==
--- NOTE | 2023-11-22 12:37 | XR ---
EXAMINATION TYPE: XR chest 2V DATE OF EXAM: 11/22/2023 COMPARISON: INDICATION: TECHNIQUE: Frontal and lateral views of the chest are obtained. FINDINGS: The heart size is normal. The pulmonary vasculature is normal. The lungs are clear. IMPRESSION: 1. No acute pulmonary process. [facility], , 11/22/2023 12:35 PM
== END | disposition home or self-care (01) ==
LOC: RADXRMAIN 11:37
PROVIDERS: ATTEND Family Medicine
DX: R06.09 Other forms of dyspnea (principal)
CPT/HCPCS: 71046

== ENCOUNTER → 2024-01-21 | Outpatient (CLI) | payer MEDICARE ==
[2024-01-21 12:19] LABS: African American GFR (CKD) >90 (>60 ml/min/1.73 sqM); Blood Urea Nitrogen 19 mg/dL (7-17); Non-African American GFR(CKD) 87 (>60 ml/min/1.73 sqM)
--- NOTE | 2024-01-21 13:28 | CT ---
EXAMINATION TYPE: CT angio chest CT DLP: 519.3 mGycm, Automated exposure control for dose reduction was used. DATE OF EXAM: 01/21/2024 1:05 PM COMPARISON: CTA chest 05/05/2015 CLINICAL INDICATION:Female, 73 years old with history of R07.89 chest pain; chest pain TECHNIQUE/CONTRAST: CTA scan of the thorax is performed with IV Contrast, patient injected with 100ml mL of Isovue 370, p ulmonary embolism protocol. MIP images are created and reviewed. FINDINGS: Pulmonary Artery: There is no evidence for a filling defect within the pulmonary vasculature to sugge st acute pulmonary embolism. The pulmonary artery is of normal size. Lungs/Pleura: No evidence of focal consolidation, pleural effusion or pneumothorax. Dependent right l ower lobe minimal subsegmental atelectasis. Linear scarring or atelectasis within the lingula, right middle lobe, and left lower lobe. No suspicious pulmonary nodules or masses. Airway: Large airways are patent. Heart: Heart is within normal limits for size.. No pericardial effusion. Vasculature: No evidence of aortic aneurysm. Mediastinum: No evidence of adenopathy. Musculoskeletal: Mild degenerative disc disease changes are present throughout the thoracolumbar spin e. No acute osseous abnormality. Soft Tissues: Left mid back generator device with leads extending superiorly along the back soft tiss ues. Lower neck: No significant findings. Upper Abdomen: Diffuse low-attenuation to the liver parenchyma.. IMPRESSION: 1. No evidence of pulmonary embolism or acute thoracic process. 2. Hepatic steatosis. [facility], , 01/21/2024 1:25 PM
== END | disposition home or self-care (01) ==
LOC: RADCTMAIN 11:45
PROVIDERS: ATTEND Family Medicine
DX: K76.0 Fatty (change of) liver, not elsewhere classified (principal); R07.89 Other chest pain
CPT/HCPCS: 82565; 84520; 71275; 36415; Q9967

== ENCOUNTER → 2024-03-05 | Outpatient (CLI) | payer MEDICARE ==
--- NOTE | 2024-03-06 07:52 | CA ---
Transthoracic Echo Report Name: Bhavya Peña Age: 73 Gender: F : 1950 Exam Date: 03/05/2024 15:03 Exam Location: [facility] [place] [facility] Ht (in): 68 Wt (lb): 246 Ordering Physician: Leif Salmon DO Attending/Referring Phys: Hematologist Oncologist Annette Balderas RDCS Procedure CPT: Indications: R06.00 Dyspnea Cardiac Hx: Technical Quality: Fair Contrast 1: Total Dose (mL): Contrast 2: Total Dose (mL): MEASUREMENTS (Male / Female) Normal Values 2D ECHO LV Diastolic Diameter PLAX 3.6 cm 4.2 - 5.9 / 3.9 - 5.3 cm LV Systolic Diameter PLAX 2.3 cm IVS Diastolic Thickness 1.2 cm 0.6 - 1.0 / 0.6 - 0.9 cm LVPW Diastolic Thickness 1.1 cm 0.6 - 1.0 / 0.6 - 0.9 cm LV Relative Wall Thickness 0.7 RV Internal Dim ED PLAX 1.9 cm LV Diastolic Volume MOD BP 51.7 cm??? 67 - 155 / 56 - 104 cm??? LV Systolic Volume MOD BP 19.1 cm??? 22 - 58 / 19 - 49 cm??? LV Ejection Fraction MOD BP 63.2 % >= 55 % LV Cardiac Index MOD BP 1066.1 cm???/min???m??? LV Diastolic Volume MOD 4C 51.0 cm??? LV Systolic Volume MOD 4C 16.9 cm??? LV Ejection Fraction MOD 4C 66.8 % LV Cardiac Index MOD 4C 1111.5 cm???/min???m??? LV Diastolic Length 4C 6.5 cm LV Systolic Length 4C 5.4 cm LV Diastolic Volume MOD 2C 49.8 cm??? LV Systolic Volume MOD 2C 22.0 cm??? LV Ejection Fraction MOD 2C 55.8 % LV Cardiac Index MOD 2C 906.0 cm???/min???m??? LV Diastolic Length 2C 6.0 cm LV Systolic Length 2C 5.5 cm LA Volume 49.1 cm??? 18 - 58 / 22 - 52 cm??? LA Volume Index 20.8 cm???/m??? 16 - 28 cm???/m??? Ascending Aorta Diameter 3.6 cm M-MODE Aortic Root Diameter MM 3.4 cm LA Systolic Diameter MM 2.8 cm LA Ao Ratio MM 0.8 AV Cusp Separation MM 2.1 cm DOPPLER AI Peak Velocity 244.2 cm/s AI Peak Gradient 23.8 mmHg AI Pressure Half Time 1142.1 ms MV Area PHT 3.0 cm??? Mitral E Point Velocity 58.3 cm/s Mitral A Point Velocity 87.6 cm/s Mitral E to A Ratio 0.7 MV Deceleration Time 255.9 ms TR Peak Velocity 233.4 cm/s TR Peak Gradient 21.8 mmHg Right Ventricular Systolic Press 26.3 mmHg FINDINGS Left Ventricle Left ventricular ejection fraction is estimated at 55-60 %. Mildly increased septal wall thickness. Mildly increased posterior wall thickness. Normal left ventricular systolic function with no obvious regional wall motion abnormalities. Left ventricular cavity size normal. Right Ventricle Normal right ventricular size and function. Right ventricular systolic pressure within normal limits. Right Atrium Normal right atrial size. Left Atrium Normal left atrial size. Mitral Valve Structurally normal mitral valve. Trace mitral regurgitation. No mitral stenosis. Aortic Valve Trileaflet aortic valve. No aortic stenosis. Trace aortic regurgitation. Tricuspid Valve Structurally normal tricuspid valve. Mild tricuspid regurgitation. No tricuspid stenosis. Pulmonic Valve Pulmonic valve not well visualized. Trace pulmonic regurgitation. No pulmonic stenosis. Pericardium No pericardial or pleural effusion. Aorta Aorta at upper limits of normal. CONCLUSIONS Technically difficult study for interpretation Normal biventricular systolic function Normal pulmonary artery systolic pressure Mild valvular abnormalities including mild MR and mild TR and mild AI No pericardial effusion Previewed by: Dr. Dwight Stein MD (Electronically Signed) Final Date: 06 March 2024 07:51
== END | disposition home or self-care (01) ==
LOC: RADECHMAIN 14:40
PROVIDERS: ATTEND Family Medicine
DX: R06.00 Dyspnea, unspecified (principal)
CPT/HCPCS: 93306

== ENCOUNTER 2024-06-13 11:19 | Emergency (ER) | payer MEDICARE ==
[2024-06-13 11:23] VITALS: TEMP 99.2
--- NOTE | 2024-06-13 11:46 | ED ---
GI Bleed HPI - General Chief complaint: GI Bleed Stated complaint: Urogenital Time Seen by Provider: 06/13/24 11:35 Source: patient, RN notes reviewed Mode of arrival: ambulatory Limitations: no limitations - History of Present Illness Initial comments: This is a 73-year-old female who presents to the emergency department for abdominal pain and blood in her stool. States that for the last 4 days she has had diarrhea. When she woke up this morning she had a large bowel movement that she advised contained a large amount of dark red blood. She has gone 3 times since then. States that those bowel moods have also contained blood, but not as much. She is on Xarelto for factor V Leiden deficiency. Denies any history of rectal bleeding in the past. Reports a constant pressure in her abdomen. Also reports nausea but no vomiting. Denies any changes to her diet or new medications. - Related Data Home Medications Medication Instructions Recorded Confirmed SUMAtriptan succinate [Imitrex] 100 mg PO BID PRN 05/05/15 02/18/23 Rizatriptan Benzoate [Maxalt] 10 mg PO DIRECTED PRN 03/10/17 02/18/23 rOPINIRole HCL [Requip] 1 mg PO TID 03/10/17 02/18/23 Acetaminophen [Tylenol Arthritis] 1,300 mg PO QAM 02/18/23 02/18/23 Atorvastatin [Lipitor] 20 mg PO DAILY 02/18/23 02/18/23 Metformin (New Script) 1 dose PO DIRECTED 02/18/23 Metoprolol Succinate (ER) [Toprol 25 mg PO HS 02/18/23 02/18/23 Xl] Pregabalin [Lyrica] 100 mg PO TID 02/18/23 02/18/23 Rivaroxaban [Xarelto] 10 mg PO HS 02/18/23 02/18/23 hydroCHLOROthiazide [Hydrodiuril] 25 mg PO DAILY 02/18/23 02/18/23 Previous Rx's Medication Instructions Recorded Ondansetron Odt [Zofran Odt] 4 mg PO Q8HR PRN #10 tab 06/13/24 Allergies Allergy/AdvReac Type Severity Reaction Status Date / Time ANUPAM Inhibitors Allergy Unknown listed on Verified 06/13/24 11:23 Dr Serra clearance paper. Milk Containing Products Allergy Abdominal Verified 06/13/24 11:23 (Dairy) Pain [Dairy] spider venom Allergy Anaphylaxis Verified 06/13/24 11:23 adhesive AdvReac Unknown tape and Verified 06/13/24 11:23 bandaides cause blisters Narcotics AdvReac Severe Nausea & Uncoded 06/13/24 11:23 Vomiting Review of Systems ROS Statement: Those systems with pertinent positive or pertinent negative responses have been documented in the HPI. ROS Other: All systems not noted in ROS Statement are negative. Past Medical History Past Medical History: Cancer, Chest Pain / Angina, Deep Vein Thrombosis (DVT), GERD/Reflux, Pulmonary Embolus (PE) Additional Past Medical History / Comment(s): migranes, ovarian stage three, History of Any Multi-Drug Resistant Organisms: None Reported Past Surgical History: Appendectomy, Breast Surgery, Hysterectomy, Tonsillectomy Additional Past Surgical History / Comment(s): right eye surgery Past Anesthesia/Blood Transfusion Reactions: Postoperative Nausea & Vomiting (PONV) Past Psychological History: Anxiety Smoking Status: Never smoker Past Alcohol Use History: None Reported Past Drug Use History: Marijuana - Past Family History Father History Unknown: Yes Family Medical History: Cancer Additional Family Medical History / Comment(s): migraines, cancer kidney, TB, Brother(s) Family Medical History: Deep Vein Thrombosis (DVT), Pulmonary Embolus General Exam Limitations: no limitations General appearance: alert, in no apparent distress Head exam: Present: atraumatic, normocephalic, normal inspection Respiratory exam: Present: normal lung sounds bilaterally. Absent: respiratory distress, wheezes, rales, rhonchi, stridor Cardiovascular Exam: Present: regular rate, normal rhythm GI/Abdominal exam: Present: soft, tenderness (Mid to upper abdomen), normal bowel sounds. Absent: distended Neurological exam: Present: alert, oriented X3, CN II-XII intact Psychiatric exam: Present: normal affect, normal mood Skin exam: Present: warm, dry, intact, normal color. Absent: rash Course Vital Signs 06/13/24 06/13/24 11:20 14:11 Temperature 99.2 F Pulse Rate 78 67 Respiratory 18 17 Rate Blood Pressure 150/92 118/71 O2 Sat by Pulse 96 98 Oximetry Medical Decision Making - Medical Decision Making This is a 73 year old female who presents to the emergency department for rectal bleeding and abdominal pain. Was pt. sent in by a medical professional or institution? @ -No Did you speak to anyone other than the patient for history? @ -No Did you review nursing and triage notes? @ -Yes, and I agree, it is accurate with regards to the patient's symptoms. Were old charts reviewed? @ -No Differential Diagnosis? @ -Differential GI Bleed: Esophageal varices, aortoenteric fistula, Jeanine-Alvarado, gastritis, peptic ulcer disease, diverticulosis, inflammatory bowel disease, hemorrhoids, fissure, colitis, malignancy, Meckel's diverticulum, this is not meant to be an all- inclusive list. EKG interpreted by me (3pts min.)? @ -EKG interpreted by me demonstrating the following: Sinus rhythm. Ventricular rate 73 bpm, NJ interval 236 ms, QRS duration 97 ms, QTc 428 ms. X-rays interpreted by me (1pt min.)? @ -Not obtained CT interpreted by me (1pt min.)? @ -CT scan of the abdomen and pelvis obtained. My interpretation identifies no bowel wall thickening or free air. U/S interpreted by me (1pt. min.)? @ -Not obtained What testing was considered but not performed? (CT, X-rays, U/S, labs)? Why? @ -None What meds were considered but not given? Why? @ -None Did you discuss the management of the patient with other professionals? @ -No Did you reconcile home meds? @ -No Was smoking cessation discussed for >3mins.? @ -No Was critical care preformed (if so, how long)? @ -No Were there social determinants of health that impacted care today? How? (Homelessness, low income, unemployed, alcoholism, drug addiction, transportation, low edu. Level, literacy, decrease access to med. care, residential, rehab)? @ -No Was there de-escalation of care discussed even if they declined? (Discuss DNR or withdrawal of care, Hospice)? @ -No What co-morbidities impacted this encounter? (DM, HTN, Smoking, COPD, CAD, Cancer, CVA, Hep., AIDS, mental health diagnosis, sleep apnea, morbid obesity)? @ -Factor V Was patient admitted / discharged? @ -Discharged. Lab work unremarkable. Hemoglobin within normal limits. Urinalysis negative for signs of infection. CT scan of the abdomen and pelvis obtained revealing no acute process. Patient had no active bleeding while she was in the emergency department. States that she used the restroom once and at that point had very little to no blood present. We discussed the possibility of a diverticular bleed causing her symptoms. We do not have our scale operator available this week. Advised that if she were to be admitted she would end up having to be transferred out elsewhere. I did offer this given her age with risk factors and blood thinner use. However, advised that she can also go home with strict return parameters if she prefers that as well. Patient advised that she would much rather go home and is comfortable with this given that she is overall feeling much better and the bleeding has lightened significantly. Zofran prescribed for any additional nausea. Advise holding her Xarelto for 2 days and following up with her primary care provider. Patient discharged home in stable condition. Case discussed with ED attending Dr. Muñoz. Return precautions reviewed in depth, the patient is instructed to return to the emergency department with any new, worsening, or concerning symptoms. Patient verbalized understanding. Undiagnosed new problem with uncertain prognosis? @ -None Drug Therapy requiring intensive monitoring for toxicity (Heparin, Nitro, Insulin, Cardizem)? @ -None Were any procedures done? @ -None Diagnosis/symptom? @ -Rectal bleeding, abdominal pain Acute, or Chronic, or Acute on Chronic? @ -Acute Uncomplicated (without systemic symptoms) or Complicated (systemic symptoms)? @ -Uncomplicated Side effects of treatment? @ -None Exacerbation, Progression, or Severe Exacerbation] @ -Not applicable Poses a threat to life or bodily function? @ -Unlikely, however this will depend on how she progresses - Lab Data Result diagrams: 06/13/24 11:30 06/13/24 11:30 Lab Results 06/13/24 06/13/24 06/13/24 Range/Units 11:30 11:30 11:30 WBC 5.98 (4.50-10.00) 10*3/uL RBC 4.82 (4.10-5.20) 10*6/uL Hgb 14.6 (12.0-15.0) g/dL Hct 43.3 (37.2-46.3) % MCV 89.8 (80.0-97.0) fL MCH 30.3 (27.0-32.0) pg MCHC 33.7 (32.0-37.0) g/dL Plt Count 213 (140-440) 10*3/uL MPV 10.0 (9.5-12.2) fL Immature Gran % (Auto) 0.7 % Neutrophils % 70.3 % Lymphocytes % 18.7 % Monocytes % 9.0 % Eosinophils % 0.8 % Basophils % 0.5 % Immature Gran # 0.04 (0.00-0.04) 10*3/uL Neutrophils # 4.20 (1.80-7.70) 10*3/uL Lymphocytes # 1.12 (0.90-5.00) 10*3/uL Monocytes # 0.54 (0.20-1.00) 10*3/uL Eosinophils # 0.05 (0.04-0.35) 10*3/uL Basophils # 0.03 (0.00-0.10) 10*3/uL PT 10.6 (10.0-12.5) sec INR 1.0 (<1.2) APTT 24.8 (22.0-30.0) sec Sodium 140 (137-145) mmol/L Potassium 3.6 (3.5-5.1) mmol/L Chloride 101 (98-107) mmol/L Carbon Dioxide 29 (22-30) mmol/L Anion Gap 10 mmol/L BUN 20 H (7-17) mg/dL Creatinine 0.70 (0.52-1.04) mg/dL Est GFR (CKD-EPI)AfAm >90 (>60 ml/min/1.73 sqM) Est GFR (CKD-EPI)NonAf 87 (>60 ml/min/1.73 sqM) Glucose 137 H (74-99) mg/dL Plasma Lactic Acid Alpesh (0.7-2.0) mmol/L Calcium 9.8 (8.4-10.2) mg/dL Magnesium 1.8 (1.6-2.3) mg/dL Total Bilirubin 0.6 (0.2-1.3) mg/dL AST 24 (14-36) U/L ALT 22 (4-34) U/L Alkaline Phosphatase 78 (38-126) U/L Total Protein 6.8 (6.3-8.2) g/dL Albumin 4.4 (3.5-5.0) g/dL Lipase 78 (23-300) U/L Urine Color Urine Appearance (Clear) Urine pH (5.0-8.0) Ur Specific Mobile (1.001-1.035) Urine Protein (Negative) Urine Glucose (UA) (Negative) Urine Ketones (Negative) Urine Blood (Negative) Urine Nitrite (Negative) Urine Bilirubin (Negative) Urine Urobilinogen (<2.0) mg/dL Ur Leukocyte Esterase (Negative) 06/13/24 06/13/24 Range/Units 11:38 11:39 WBC (4.50-10.00) 10*3/uL RBC (4.10-5.20) 10*6/uL Hgb (12.0-15.0) g/dL Hct (37.2-46.3) % MCV (80.0-97.0) fL MCH (27.0-32.0) pg MCHC (32.0-37.0) g/dL Plt Count (140-440) 10*3/uL MPV (9.5-12.2) fL Immature Gran % (Auto) % Neutrophils % % Lymphocytes % % Monocytes % % Eosinophils % % Basophils % % Immature Gran # (0.00-0.04) 10*3/uL Neutrophils # (1.80-7.70) 10*3/uL Lymphocytes # (0.90-5.00) 10*3/uL Monocytes # (0.20-1.00) 10*3/uL Eosinophils # (0.04-0.35) 10*3/uL Basophils # (0.00-0.10) 10*3/uL PT (10.0-12.5) sec INR (<1.2) APTT (22.0-30.0) sec Sodium (137-145) mmol/L Potassium (3.5-5.1) mmol/L Chloride (98-107) mmol/L Carbon Dioxide (22-30) mmol/L Anion Gap mmol/L BUN (7-17) mg/dL Creatinine (0.52-1.04) mg/dL Est GFR (CKD-EPI)AfAm (>60 ml/min/1.73 sqM) Est GFR (CKD-EPI)NonAf (>60 ml/min/1.73 sqM) Glucose (74-99) mg/dL Plasma Lactic Acid Alpesh 1.8 (0.7-2.0) mmol/L Calcium (8.4-10.2) mg/dL Magnesium (1.6-2.3) mg/dL Total Bilirubin (0.2-1.3) mg/dL AST (14-36) U/L ALT (4-34) U/L Alkaline Phosphatase (38-126) U/L Total Protein (6.3-8.2) g/dL Albumin (3.5-5.0) g/dL Lipase (23-300) U/L Urine Color Colorless Urine Appearance Clear (Clear) Urine pH 6.5 (5.0-8.0) Ur Specific Mobile 1.020 (1.001-1.035) Urine Protein Negative (Negative) Urine Glucose (UA) Negative (Negative) Urine Ketones Negative (Negative) Urine Blood Negative (Negative) Urine Nitrite Negative (Negative) Urine Bilirubin Negative (Negative) Urine Urobilinogen <2.0 (<2.0) mg/dL Ur Leukocyte Esterase Negative (Negative) - Radiology Data Radiology results: report reviewed, image reviewed Disposition Clinical Impression: Rectal bleeding, Diverticulosis Disposition: HOME SELF-CARE Instructions (If sedation given, give patient instructions): Rectal Bleeding (ED) Additional Instructions: Return to the emergency department with any new, worsening, or concerning symptoms. Take the Zofran up to every 8 hours as needed for nausea and vomiting. Take Tylenol as needed for pain relief. Hold your Xarelto for 2 days. Follow up with your primary care provider in 1-2 days. Prescriptions: Ondansetron Odt [Zofran Odt] 4 mg PO Q8HR PRN #10 tab PRN Reason: Nausea And Vomiting Is patient prescribed a controlled substance at d/c from ED?: No Referrals: Leif Salmon DO [Primary Care Provider] - 1-2 days Time of Disposition: 13:52
[2024-06-13] MEDS: ACETAMINOPHEN TAB 500 MG TAB PO STA (11:56)
[2024-06-13] MEDS: ONDANSETRON 4 MG/2 ML VIAL IVP STA (11:57)
[2024-06-13 12:01] LABS: Basophils # (A) 0.03 10*3/uL (0.00-0.10); Basophils % (A) 0.5 %; Eosinophils # (A) 0.05 10*3/uL (0.04-0.35); Eosinophils % (A) 0.8 %; HCT 43.3 % (37.2-46.3); HGB 14.6 g/dL (12.0-15.0); Lymphocytes # (A) 1.12 10*3/uL (0.90-5.00); Lymphocytes % (A) 18.7 %; MCH 30.3 pg (27.0-32.0); MCHC 33.7 g/dL (32.0-37.0); MCV 89.8 fL (80.0-97.0); Monocytes # (A) 0.54 10*3/uL (0.20-1.00); Neutrophils % (A) 70.3 %; Platelet Count 213 10*3/uL (140-440); RBC 4.82 10*6/uL (4.10-5.20); RDW 12.4 % (11.5-14.5); WBC 5.98 10*3/uL (4.50-10.00)
[2024-06-13 12:29] LABS: Appearance,Urine Clear (Clear); Bilirubin,Urine Negative (Negative); Blood,Urine Negative (Negative); Color,Urine Colorless; Glucose,Urine (UA) Negative (Negative); Ketones,Urine Negative (Negative); Leukocyte Esterase,Urine Negative (Negative); Nitrite,Urine Negative (Negative); PH, Urine 6.5 (5.0-8.0); Protein,Urine Negative (Negative); Urobilinogen,Urine <2.0 mg/dL (<2.0)
[2024-06-13 12:31] LABS: ALT 22 U/L (4-34); AST 24 U/L (14-36); African American GFR (CKD) >90 (>60 ml/min/1.73 sqM); Albumin 4.4 g/dL (3.5-5.0); Alkaline Phosphatase 78 U/L (38-126); Anion Gap 10 mmol/L; Blood Urea Nitrogen 20 mg/dL (7-17); Calcium 9.8 mg/dL (8.4-10.2); Carbon Dioxide 29 mmol/L (22-30); Chloride 101 mmol/L (98-107); Glucose 137 mg/dL (74-99); Lipase 78 U/L (23-300); Magnesium 1.8 mg/dL (1.6-2.3); Non-African American GFR(CKD) 87 (>60 ml/min/1.73 sqM); Potassium 3.6 mmol/L (3.5-5.1); Sodium 140 mmol/L (137-145); Total Bilirubin 0.6 mg/dL (0.2-1.3); Total Protein 6.8 g/dL (6.3-8.2)
[2024-06-13 12:38] LABS: Partial Thromboplastin Time 24.8 sec (22.0-30.0); Prothrombin Time 10.6 sec (10.0-12.5)
--- NOTE | 2024-06-13 13:25 | CT ---
EXAMINATION TYPE: CT abdomen pelvis w con DATE OF EXAM: 06/13/2024 1:11 PM COMPARISON: None. CLINICAL INDICATION: Female, 73 years old with history of Abdominal pain, blood in stool, Abdominal p ain, blood in stool TECHNIQUE: Axial images were obtained from above the diaphragm to the pubic rami in the axial plane a t 5 mm thick sections. Reconstructed images are reviewed on the computer in the coronal plane. CONTRAST: 100 ml mL of Isovue 300. Study performed without Oral Contrast DLP: 1868.9 mGycm, Automated exposure control for dose reduction was used. FINDINGS: Limited CT sections are obtained the lung bases. The lung bases are clear. CT ABDOMEN: Liver: Diffuse diminished density of the liver is compatible moderate fatty infiltration. Spleen: Normal Pancreas: Normal Adrenal glands: The adrenal glands are normal. Gallbladder: Normal Kidneys: No masses are evident. No hydronephrosis is present. No cysts are present. Delayed images were obtained through the kidneys, which remain unremarkable. Aorta: Vascular calcification is within the aorta. Inferior vena cava: Normal. CT PELVIS: Loops of bowel within the abdomen and pelvis are normal. Scattered diverticular changes are within th e sigmoid colon. No acute diverticulitis is evident. There are loops of bowel which are incomplete ly distended or lack oral contrast limiting their evaluation. Appendix: Not identified. No dilated tubular structure or inflammatory changes evident. Urinary bladder: Normal. Genitourinary structures: Uterus and ovaries are not identified. Osseous structures: No suspicious lytic or sclerotic lesions. Degenerative facet and disc spaces and the lower lumbar spine IMPRESSION: 1. Mild diverticulosis without acute diverticulitis. 2. Moderate fatty infiltration of liver. [facility], , 06/13/2024 1:23 PM
[2024-06-13] MEDS: ONDANSETRON 4 MG ODT STARTER PACK 2 TAB BTL PO STA (14:10)
[2024-06-13] MEDS: PANTOPRAZOLE 40 MG/10 ML VIAL IVP STA (14:10)
[2024-06-13 14:13] VITALS: BP 118/71; PULSE 67; RESP 17
== END 2024-06-13 14:25 | disposition home or self-care (01) ==
LOC: EC 11:19
DX: K62.5 Hemorrhage of anus and rectum (principal); K57.30 Diverticulosis of large intestine without perforation or abscess without bleeding; D68.51 Activated protein C resistance; Z88.5 Allergy status to narcotic agent; Z91.09 Other allergy status, other than to drugs and biological substances; Z91.011 Allergy to milk products; Z91.038 Other insect allergy status; Z88.8 Allergy status to other drugs, medicaments and biological substances
CPT/HCPCS: 36415; 93005; 80053; 83605; 83690; 83735; 85025; 85610; 85730; 81003; 74177; 99285; 96374; 96375; J2405; S0119; Q9967; J2470